=== PATIENT | male | born 2000 | race Two or more races ===

== ENCOUNTER 2025-05-12 06:56 | Emergency (ER) | payer MEDICAID, SELFPAY ==
--- NOTE | 2025-05-12 | XR_ITS ---
MRI abdomen, without contrast. MRCP Date and time of exam: May 12, 2025, 10 0 6:00 AM. Indications: Epigastric pain radiating to the right upper abdomen beginning 2 days ago, gallbladder sonogram May 12, 2025 enlarged common bile duct 0.6 cm distended gallbladder, gallstones Technique: Multiple axial and coronal images of the abdomen have been obtained with the Siemens 1.5T MRI scanner. Images obtained included T1 weighted transverse images, T2-weighted transverse images, T2-weighted transverse images fat-suppressed, T2 weighted haste fat suppressed transverse images, T1 weighted images, in and out of phase images, T2-weighted coronal images, breath hold, T2 weighted haze coronal images as well as T2 weighted coronal thick slab images, MRCP. Findings: Hepatomegaly 19 cm. Cholelithiasis. Gallbladder wall appears thickened and edematous. Common bile duct is not enlarged, 2 mm, no common hepatic or common bile duct stones No pancreatic mass. Spleen is not enlarged. No ascites. Aorta normal size. No hydronephrosis. Impression: Hepatomegaly. Acute calculus cholecystitis. No common hepatic or common bile duct stones
[2025-05-12 06:57] VITALS: BMI 32.8
[2025-05-12 07:16] VITALS: BP 141/78; PULSE 64; RESP 18; TEMP 37; O2SAT 99
--- NOTE | 2025-05-12 07:21 | XR_ITS ---
Examination: Abdomen sonogram, Limited Date and time of exam: May 12, 2025, 0810 hrs. Indications: Right upper abdominal pain beginning this morning Technique: Real-time white scale transabdominal sonographic images of the upper abdomen obtained. Findings: Multiple gallstones. Distended gallbladder. Normal gallbladder wall 0.2 cm. Abnormal enlargement common bile duct 0.6 cm. Pancreatic head 2.8 cm. Liver 16.8 cm fatty infiltration no focal liver lesions. Normal hepatopedal portal venous flow. Patent IVC Impression: Cholelithiasis, negative for cholecystitis Abnormal enlargement common bile duct 0.6 cm, consider MRCP follow-up to exclude common bile duct stones
--- NOTE | 2025-05-12 07:43 | PD.EDABDPN ---
ED Abdominal Pain RME/HPI General Chief Complaint: Abdominal Pain Stated complaint: UPPER ABDOMINAL PAIN Time seen by provider: 05/12/25 07:12 Arrival date/time: 05/12/25 06:56 24-year-old male with no known medical history presents to the emergency room with a chief complaint of epigastric pain that radiates to the right upper quadrant x 2 days Source: patient Mode of arrival: ambulatory Limitations: no limitations Related Data Home Medications ?Medication ?Instructions ?Recorded ?Confirmed No Known Home Medications 07/05/22 07/05/22 Allergies Allergy/AdvReac Type Severity Reaction Status Date / Time No Known Allergies AdvReac Unknown Uncoded 08/03/17 19:48 ED Exam General Limitations: Present no limitations Course Orders Category Date Time Status gall bladder Stat Exams 05/12/25 07:21 Ordered CBC Stat Lab 05/12/25 07:22 Ordered CMP [Comprehensive Metabolic Panel] Stat Lab 05/12/25 07:22 Ordered Lipase Stat Lab 05/12/25 07:22 Ordered UA [Urinalysis] Stat Lab 05/12/25 07:22 Ordered Urine Culture Stat Lab 05/12/25 07:22 Ordered HYDROcodone*/APAP 5/325 [[place] 5/325] Med 05/12/25 07:21 Discontinued 1 tab PO X1 ONE Ondansetron Odt [Zofran Odt] Med 05/12/25 07:21 Discontinued 4 mg PO X1 ONE Vital Signs Vital signs: Vital Signs Temperature 98.6 F 05/12/25 07:16 Pulse Rate 64 05/12/25 07:16 Respiratory Rate 18 05/12/25 07:16 Blood Pressure 141/78 H 05/12/25 07:16 Pulse Oximetry (%) 99 05/12/25 07:16 Oxygen Delivery Method Room Air 05/12/25 07:16 Abdominal Pain MDM Medications / Prescriptions Medication administrations:: Medication Administration History Discontinued Medications Hydrocodone Bitart/Acetaminophen (Hydrocodone/Apap 5/325 Tablet) 1 tab PO X1 ONE Stop: 05/12/25 07:22 Ondansetron HCl (Ondansetron Odt 4 Mg Tabrap) 4 mg PO X1 ONE; Protocol Stop: 05/12/25 07:22 Discharge Plan Prescriptions/Referrals Prescriptions/Med Rec: No Action No Known Home Medications Patient/Caregiver Discharge Instructions Print Language: Macedonian
[2025-05-12] MEDS: ONDANSETRON ODT 4 MG TABRAP PO (07:47)
[2025-05-12] MEDS: HYDROcodone/APAP 5/325 TABLET 1 TAB PO ×2 (07:47→12:16)
[2025-05-12 07:50] LABS: Collection Type, Urine Clean Catch
[2025-05-12 07:53] LABS: Basophils # (Auto) 0.0 Thou/mm3 (0.0-0.2); Basophils % (Auto) 0 % (0-2.5); Eosinophils # (Auto) 0.0 Thou/mm3 (0.0-0.5); Eosinophils % (Auto) 0 % (0-10); Hematocrit 47.0 % (41.0-53.0); Hemoglobin 15.4 g/dL (13.5-16.0); Immature Granulocytes Auto 0.05 Thou/mm3 (0.00-0.00); Lymphocytes # (Auto) 1.2 Thou/mm3 (1.0-4.8); Lymphocytes % (Auto) 9 % (10-50); Mean Corpuscular HGB Conc 32.8 g/dl (31.0-37.0); Mean Corpuscular Hemoglobin 27.4 pg (25.0-35.0); Mean Corpuscular Volume 84 fL (80-100); Monocytes # (Auto) 0.6 Thou/mm3 (0.0-0.8); Monocytes % (Auto) 5 % (0-12); Neutrophils # (Auto) 11.7 Thou/mm3 (1.8-7.7); Neutrophils % (Auto) 86 % (37-80); Nucleated Red Blood Cell # 0.00 Thou/mm3 (0.00-0.00); Nucleated Red Blood Cell % 0 /100 WBC (0); Platelet Count 376 Thou/mm3 (140-440); RDW Standard Deviation 40.4 fL (35.1-43.9); Red Blood Count 5.62 Miln/mm3 (4.50-5.90); White Blood Count 13.5 Thou/mm3 (3.8-10.6)
[2025-05-12 07:58] LABS: Bilirubin,Urine Negative (Negative); Blood,Urine Negative (Negative); Clarity,Urine Clear (Clear/Hazy); Color,Urine Lt-Yellow (Lt Yel-Yel); Glucose, Urine Negative (Negative); Ketones,Urine Negative (Negative); Leukocyte Esterase,Urine Negative (Negative); Nitrite,Urine Negative (Negative); PH,Urine 8.0 (5.0-7.0); Protein,Urine Trace (Neg - Trace); RBC,Urine 2 /hpf (0-3); Specific Gravity,Urine 1.020 (1.001-1.035); Squamous Epithelial Cell,Urine < 1 /hpf (0-5); Urobilinogen,Urine 2.0 mg/dL (0.0-1.0); WBC,Urine 1 /hpf (0-5)
[2025-05-12 08:28] LABS: Alanine Aminotransferase 8 U/L (10-49); Albumin, Serum 4.8 gm/dL (3.5-5.0); Albumin/Globulin Ratio 1.7 (1.2-2.2); Alkaline Phosphatase 94 U/L (46-116); Anion Gap 10 (7-16); Aspartate Amino Transferase 18 U/L (0-34); BUN/Creatinine Ratio 10 Ratio (12-20); Bilirubin,Total 0.4 mg/dL (0.3-1.2); Blood Urea Nitrogen 8 mg/dL (9-23); Calcium 10.0 mg/dL (8.3-10.6); Calcium (Corrected) 10.0 mg/dL (8.5-10.1); Carbon Dioxide 29.7 mMol/L (20.0-31.0); Chloride 104 mMol/L (98-107); Creatinine (Component) 0.8 mg/dL (0.6-1.3); Estimated Creatinine Clearance 158.0 mL/min (>60); Globulin 2.8 gm/dL (2.3-3.5); Glucose 127 mg/dL (74-106); Lipase 31 U/L (12-53); Osmolality,Calculated 287 (275-295); Potassium 4.0 mMol/L (3.4-5.1); Sodium 144 mMol/L (136-145); Total Protein 7.6 gm/dL (5.7-8.2); eGFR > 60 See Note
[2025-05-12 09:21] VITALS: BP 128/76; PULSE 82; RESP 18; TEMP 37.1; O2SAT 98
--- NOTE | 2025-05-12 09:22 | PD.EDRME ---
Rapid Medical Screening Exam RME Arrival date/time: 05/12/25 06:56 24-year-old male with no known medical history presents to the emergency room with a chief complaint of epigastric pain that radiates to the right upper quadrant x 2 days I have greeted and performed a focused initial assessment of this patient. A comprehensive ED assessment and evaluation of the patient, analysis of all test results, and completion of the medical decision making process will be conducted by additional ED providers. Chief Complaint: Abdominal Pain Time Seen by Provider: 05/12/25 07:12 Vital signs: Vital Signs Temperature 98.6 F 05/12/25 07:16 Pulse Rate 64 05/12/25 07:16 Respiratory Rate 18 05/12/25 07:16 Blood Pressure 141/78 H 05/12/25 07:16 Pulse Oximetry (%) 99 05/12/25 07:16 Oxygen Delivery Method Room Air 05/12/25 07:16 Vital signs reviewed by provider: Yes
[2025-05-12 11:12] VITALS: BP 139/83; PULSE 80; RESP 18; TEMP 37; O2SAT 92
--- NOTE | 2025-05-12 11:56 | EDNOTE_ITS ---
ED Abdominal Pain RME/HPI General Chief Complaint: Abdominal Pain Stated complaint: UPPER ABDOMINAL PAIN Time seen by provider: 05/12/25 07:12 Arrival date/time: 05/12/25 06:56 RME / HPI RME / HPI narrative: 05/12/25 06:56 24-year-old male with no known medical history presents to the emergency room with a chief complaint of epigastric pain that radiates to the right upper quadrant x 2 days I have greeted and performed a focused initial assessment of this patient. A comprehensive ED assessment and evaluation of the patient, analysis of all test results, and completion of the medical decision making process will be conducted by additional ED providers. DR. YOUSSEF MAIN ED EVALUATION 24 year old male with no stated medical history presents to the ED for evaluation of abdominal pain beginning 2 days ago and worsening at 04:00 AM today. Described as colicky in sensation that is located most to the epigastric and right upper quadrants with radiation around to his back. Initially rated as severe and in the ED rates as mild. Accompanied by nausea and vomiting. Patient reports history of similar pain years ago and diagnosed with small gallstones. No subsequent episodes of pain. Denies fevers, chills, sweats, chest pain, cough, shortness of breath, or urinary symptoms. Related Data Previous Rx's ?Medication ?Instructions ?Recorded ibuprofen 600 mg tablet 600 mg PO Q6H PRN pain #30 t abs 05/12/25 Allergies Allergy/AdvReac Type Severity Reaction Status Date / Time No Known Allergies AdvReac Unknown Uncoded 08/03/17 19:48 Review of Systems Review of Systems Systems Reviewed: All systems reviewed, normal except as documented Past Medical History Past Medical History CARDIAC: Negative Congestive Heart Failure RESPIRATORY: Negative Respiratory Disorders or Chronic Obstructive Pulmonary Disease (COPD) GENITOURINARY: Negative Renal Disease ENDOCRINE: Negative Diabetes Mellitus Type 1 or Diabetes Mellitus Type 2 Surgical History SURGICAL: Positive Ear Surgery and Eye Surgery Social History SMOKING STATUS: Never smoker ED Exam Narrative Physical exam: GENERAL APPEARANCE: alert and oriented x 4, well-developed, well-nourished, no acute distress HEENT: Normocephalic, atraumatic; pupils equal, round, reactive to light; EOMI; mucous membranes pink, moist; oropharynx clear NECK: Supple LUNGS: CTABL; no wheezes, no rales, no rhonchi HEART: Regular rate, regular rhythm; normal S1, S2; no murmurs ABDOMEN: non distended; normal BS; soft, no tenderness, no guarding, no rebound; no masses, no organomegaly, no hernia BACK: no CVA tenderness EXTREMITIES: atraumatic; no edema NEUROLOGIC: awake; alert and oriented x4; cranial nerves II-XII grossly intact; no focal sensory or motor deficits PSYCHIATRIC: appropriate mood and affect SKIN: warm, dry, normal color; no rashes Course Quality Measures none Orders Category Date Time Status MRI Screening NOW Care 05/12/25 09:22 Active Consult to General Surgery Stat Cons 05/12/25 12:05 Ordered MR MRCP Stat Exams 05/12/25 Completed US gall bladder Stat Exams 05/12/25 07:21 Completed CBC Stat Lab 05/12/25 07:26 Completed CMP [Comprehensive Metabolic Panel] Stat Lab 05/12/25 07:26 Completed Lipase Stat Lab 05/12/25 07:26 Completed UA [Urinalysis] Stat Lab 05/12/25 07:30 Completed Urine Culture Stat Lab 05/12/25 07:22 Received HYDROcodone*/APAP 5/325 [[place] 5/325] Med 05/12/25 07:21 Discontinued 1 tab PO X1 ONE HYDROcodone*/APAP 5/325 [[place] 5/325] Med 05/12/25 12:06 Discontinued 1 tab PO X1 ONE Ondansetron Odt [Zofran Odt] Med 05/12/25 07:21 Discontinued 4 mg PO X1 ONE Vital Signs Vital signs: Vital Signs Temperature 98.6 F 05/12/25 07:16 Pulse Rate 64 05/12/25 07:16 Respiratory Rate 18 05/12/25 07:16 Blood Pressure 141/78 H 05/12/25 07:16 Pulse Oximetry (%) 99 05/12/25 07:16 Oxygen Delivery Method Room Air 05/12/25 07:16 Pulse ox is 99% on room air which is adequate. Abdominal Pain MDM MDM Narrative MDM Narrative:: IVivian, am scribing for and in the presence of Dr. Youssef. 1200: I spoke with surgeon Dr. Anthony. Discussed patients PMHx, HPI, ED course, exam findings, labs, and radiology results. States given that the patients symptoms have improved, he can be discharged home and follow up with her on in her office. 1205: I reviewed todays results with patients and mother. They are in agreement with plan. Patient data External records reviewed:: [facility] previous records (I reviewed ED visit on 07/05/2022 ) Clinical information provided by:: patient Social determinants that could affect healthcare access:: none Patient has the following chronic illnesses:: None reported How is presenting disease/condition affected by chronic disease/condition?: no chronic disease Evaluation data The following diagnostics were reviewed and interpreted by me:: lab results and radiology exam(s) Lab and/or radiology exams considered but not ordered:: None Interpretation Summary: Ordering Physician: Pankaj Page Date of Service: 05/12/25 Procedure(s): MR MRCP Accession Number(s): [id number] cc: Pankaj Page; Fernando Ayala MD; Raleigh Erazo MD~ MRI abdomen, without contrast. MRCP Date and time of exam: May 12, 2025, 10 0 6:00 AM. Indications: Epigastric pain radiating to the right upper abdomen beginning 2 days ago, gallbladder sonogram May 12, 2025 enlarged common bile duct 0.6 cm distended gallbladder, gallstones Technique: Multiple axial and coronal images of the abdomen have been obtained with the Siemens 1.5T MRI scanner. Images obtained included T1 weighted transverse images, T2-weighted transverse images, T2-weighted transverse images fat-suppressed, T2 weighted haste fat suppressed transverse images, T1 weighted images, in and out of phase images, T2-weighted coronal images, breath hold, T2 weighted haze coronal images as well as T2 weighted coronal thick slab images, MRCP. Findings: Hepatomegaly 19 cm. Cholelithiasis. Gallbladder wall appears thickened and edematous. Common bile duct is not enlarged, 2 mm, no common hepatic or common bile duct stones No pancreatic mass. Spleen is not enlarged. No ascites. Aorta normal size. No hydronephrosis. Impression: Hepatomegaly. Acute calculus cholecystitis. No common hepatic or common bile duct stones Dictated By: Raleigh Erazo MD Signed By: <Electronically signed by Raleigh Erazo MD in [place]> 05/12/25 1115 Ordering Physician: Pankaj Page Date of Service: 05/12/25 Procedure(s): US gall bladder Accession Number(s): [id number] cc: Pankaj Page; Raleigh Erazo MD~ Examination: Abdomen sonogram, Limited Date and time of exam: May 12, 2025, 0810 hrs. Indications: Right upper abdominal pain beginning this morning Technique: Real-time white scale transabdominal sonographic images of the upper abdomen obtained. Findings: Multiple gallstones. Distended gallbladder. Normal gallbladder wall 0.2 cm. Abnormal enlargement common bile duct 0.6 cm. Pancreatic head 2.8 cm. Liver 16.8 cm fatty infiltration no focal liver lesions. Normal hepatopedal portal venous flow. Patent IVC Impression: Cholelithiasis, negative for cholecystitis Abnormal enlargement common bile duct 0.6 cm, consider MRCP follow-up to exclude common bile duct stones Dictated By: Raleigh Erazo MD Signed By: <Electronically signed by Raleigh Erazo MD in [place]> 05/12/25 0832 Medications / Prescriptions Medications or Prescriptions considered but not ordered:: None Medication administrations:: Medication Administration History Discontinued Medications Hydrocodone Bitart/Acetaminophen (Hydrocodone/Apap 5/325 Tablet) 1 tab PO X1 ONE Stop: 05/12/25 07:22 Last Admin: 05/12/25 07:47 Dose: 1 tab Documented By: [facility] Hydrocodone Bitart/Acetaminophen (Hydrocodone/Apap 5/325 Tablet) 1 tab PO X1 ONE Stop: 05/12/25 12:07 Ondansetron HCl (Ondansetron Odt 4 Mg Tabrap) 4 mg PO X1 ONE; Protocol Stop: 05/12/25 07:22 Last Admin: 05/12/25 07:47 Dose: 4 mg Documented By: [facility] See above Consultations Consultation(s) initiated? (list below): Yes Consultation #1 (Physician, Specialty, Details): See MDM Diagnosis Differential diagnosis abdominal pain: abdominal pain and other (cholelithiasis, kidney stone) Most likely diagnosis given after review of the tests above:: Abdominal pain Biliary colic Admission Indicated Admission indicated?: not indicated Admission Request Was there a request for admission?: No Disposition Plan Disposition Plan: Discharge Discharge Attestation Discharge Attestation: The patient and all family members were given an opportunity to ask questions and understood the discharge instructions. Discharge instructions specifically effects, indications for sooner follow up or return to the emergency department, and the expected course of current diagnosis. Patient condition: Stable Discharge Plan Plan Patient Disposition: HOME (Self Care) Prescriptions/Referrals Prescriptions/Med Rec: New ibuprofen 600 mg tablet 600 mg PO Q6H PRN (Reason: pain) Qty: 30 0RF Referrals: Fernando Ayala MD [Primary Care Provider] - In 1 week Annalee Anthony MD [Physician] - 05/29/25 Problem List Clinical Impression: Abdominal pain, Biliary colic Patient/Caregiver Discharge Instructions Education Materials: ED Gallstones with Biliary Colic Additional Instructions: Follow up with Dr. Anthony on 05/12/25. The office staff will call you with an appointment time. Print Language: Luxembour[place] Stand Alone Forms: Joanie Award Info., Patient Portal Info Letter
== END 2025-05-12 12:19 | disposition home or self-care (01) ==
PROVIDERS: Nurse Practitioner Family; Emergency Provider Emergency Medicine; PCP Family Medicine
DX: K80.62 Calculus of gallbladder and bile duct with acute cholecystitis without obstruction (principal); R16.0 Hepatomegaly, not elsewhere classified
CPT/HCPCS: 36415; 74181; 76705; 80053; 81001; 83690; 85025; 87086; 99284; Q0162; A9270

== ENCOUNTER 2025-05-17 19:40 | Observation (INO) | payer MEDICAID, SELFPAY ==
[2025-05-17 19:41] VITALS: BMI 32.8
[2025-05-17 20:05] VITALS: BP 159/77; PULSE 64; RESP 18; TEMP 37.2; O2SAT 97
--- NOTE | 2025-05-17 20:25 | XR_ITS ---
Examination: Abdomen sonogram, Limited Date and time of exam: May 17, 2025, 2114 hrs. Indications: Epigastric pain, today, history gallstones Technique: Real-time white scale transabdominal sonographic images of the upper abdomen obtained. Findings: Multiple gallstones Gallbladder wall 0.5 cm with edema Common bile duct 0.6 cm Pancreatic head 2.8 cm. Liver 17.6 cm lobular contour fatty infiltration Normal hepatopedal portal venous oh Patent IVC Impression: Acute calculus cholecystitis Common bile duct enlarged for patient of this age, however, please see the MRCP report May 12, 2025, given the current common bile duct measurement, consider repeat MRCP follow-up
[2025-05-17 20:47] LABS: Basophils # (Auto) 0.0 Thou/mm3 (0.0-0.2); Basophils % (Auto) 0 % (0-2.5); Eosinophils # (Auto) 0.0 Thou/mm3 (0.0-0.5); Eosinophils % (Auto) 0 % (0-10); Hematocrit 43.7 % (41.0-53.0); Hemoglobin 14.3 g/dL (13.5-16.0); Immature Granulocytes Auto 0.08 Thou/mm3 (0.00-0.00); Lymphocytes # (Auto) 1.0 Thou/mm3 (1.0-4.8); Lymphocytes % (Auto) 6 % (10-50); Mean Corpuscular HGB Conc 32.7 g/dl (31.0-37.0); Mean Corpuscular Hemoglobin 27.4 pg (25.0-35.0); Mean Corpuscular Volume 84 fL (80-100); Monocytes # (Auto) 0.8 Thou/mm3 (0.0-0.8); Monocytes % (Auto) 5 % (0-12); Neutrophils # (Auto) 15.3 Thou/mm3 (1.8-7.7); Neutrophils % (Auto) 89 % (37-80); Nucleated Red Blood Cell # 0.00 Thou/mm3 (0.00-0.00); Nucleated Red Blood Cell % 0 /100 WBC (0); Platelet Count 395 Thou/mm3 (140-440); RDW Standard Deviation 38.3 fL (35.1-43.9); Red Blood Count 5.22 Miln/mm3 (4.50-5.90); White Blood Count 17.3 Thou/mm3 (3.8-10.6)
[2025-05-17] MEDS: ONDANSETRON ODT 4 MG TABRAP PO (20:47)
[2025-05-17] MEDS: MORPHINE SULF INJ 4 MG/ML VIAL IM ×2 (20:48→22:43)
[2025-05-17 21:25] LABS: Alanine Aminotransferase 8 U/L (10-49); Albumin, Serum 4.6 gm/dL (3.5-5.0); Albumin/Globulin Ratio 1.5 (1.2-2.2); Alkaline Phosphatase 92 U/L (46-116); Anion Gap 11 (7-16); Aspartate Amino Transferase 15 U/L (0-34); BUN/Creatinine Ratio 11 Ratio (12-20); Bilirubin,Total 0.6 mg/dL (0.3-1.2); Blood Urea Nitrogen 9 mg/dL (9-23); Calcium 9.5 mg/dL (8.3-10.6); Calcium (Corrected) 9.5 mg/dL (8.5-10.1); Carbon Dioxide 26.9 mMol/L (20.0-31.0); Chloride 102 mMol/L (98-107); Creatinine (Component) 0.8 mg/dL (0.6-1.3); Estimated Creatinine Clearance 158.0 mL/min (>60); Globulin 3.1 gm/dL (2.3-3.5); Glucose 121 mg/dL (74-106); Osmolality,Calculated 279 (275-295); Potassium 3.6 mMol/L (3.4-5.1); Sodium 140 mMol/L (136-145); Total Protein 7.7 gm/dL (5.7-8.2); eGFR > 60 See Note
[2025-05-17 22:03] LABS: Collection Type, Urine Clean Catch
[2025-05-17 22:17] LABS: Amorphous Crystals,Urine Present (Absent); Bacteria,Urine Rare; Bilirubin,Urine Negative (Negative); Blood,Urine 1+ (Negative); Clarity,Urine Clear (Clear/Hazy); Color,Urine Yellow (Lt Yel-Yel); Glucose, Urine Negative (Negative); Ketones,Urine Trace (Negative); Leukocyte Esterase,Urine Negative (Negative); Nitrite,Urine Negative (Negative); PH,Urine 5.5 (5.0-7.0); Protein,Urine Trace (Neg - Trace); RBC,Urine 2 /hpf (0-3); Specific Gravity,Urine 1.031 (1.001-1.035); Squamous Epithelial Cell,Urine 1 /hpf (0-5); Urobilinogen,Urine 3.0 mg/dL (0.0-1.0); WBC,Urine < 1 /hpf (0-5)
--- NOTE | 2025-05-17 22:34 | PD.EDABDPN ---
ED Abdominal Pain RME/HPI General Chief Complaint: Abdominal Pain Stated complaint: EPIGASTRIC PAIN Time seen by provider: 05/17/25 19:59 Arrival date/time: 05/17/25 19:40 This is a case of 24-year-old male with history of gallstone came in in the emergency room due to bilateral upper abdominal pain history of present illness started 2 weeks prior to arrival in the emergency room when patient started to have abdominal pain associated with nausea vomiting patient was seen here May 12, 2025 for he was diagnosed to have cholelithiasis MR SP was also done at that time patient condition improved until today when the recurrence of abdominal pain started with nausea vomiting no diarrhea no constipation no blood in stool thus patient decided to sought consult here in the emergency ROOM Limitations: no limitations Related Data Previous Rx's ?Medication ?Instructions ?Recorded ibuprofen 600 mg tablet 600 mg PO Q6H PRN pain #30 tabs 05/12/25 Allergies Allergy/AdvReac Type Severity Reaction Status Date / Time No Known Allergies Allergy Verified 05/17/25 19:43 Review of Systems Review of Systems Systems Reviewed: All systems reviewed, normal except as documented Constitutional Constitutional: Reports system reviewed and no additional complaints, except as documented, Reports as per HPI, Denies anorexia, Denies chills and Denies fever(s) ENT Ears, Nose, Mouth, and Throat: Denies dysphagia and Denies odynophagia Cardiovascular Cardiovascular: Reports system reviewed and no additional complaints, except as documented and Reports as per HPI Respiratory Respiratory: Reports system reviewed and no additional complaints, except as documented and Reports as per HPI Gastrointestinal Gastrointestinal: Reports system reviewed and no additional complaints, except as documented, Reports as per HPI, Reports abdominal pain, Denies belching, Denies bloating, Denies change in bowel habits, Denies change in stool character, Denies coffee ground emesis, Denies constipation, Denies cramping, Denies diarrhea, Denies dyspepsia, Denies dysphagia, Denies early satiety, Denies excessive flatus, Denies fecal incontinence, Denies heartburn, Denies hematemesis, Denies hematochezia, Denies loose stools, Denies melena, Reports nausea, Denies odynophagia, Denies tenesmus and Reports vomiting Musculoskeletal Musculoskeletal: Reports system reviewed and no additional complaints, except as documented and Reports as per HPI Neurologic Neurologic: Reports system reviewed and no additional complaints, except as documented and Reports as per HPI Past Medical History Past Medical History CARDIAC: Negative Congestive Heart Failure RESPIRATORY: Negative Chronic Obstructive Pulmonary Disease (COPD) GENITOURINARY: Negative Renal Disease ENDOCRINE: Negative Diabetes Mellitus Type 1 or Diabetes Mellitus Type 2 Surgical History SURGICAL: Positive Ear Surgery and Eye Surgery Social History SMOKING STATUS: Never smoker ED Exam General Limitations: Present no limitations General appearance: Present alert, in no apparent distress and other (Patient is awake alert oriented not in distress nontoxic looking well-hydrated well-nourished) Head Head exam: Present atraumatic, normocephalic and normal inspection Eye Eye exam: Present normal appearance, PERRL and EOMI ENT ENT exam: Present normal exam, normal oropharynx and mucous membranes moist Neck Neck exam: Present normal inspection, full ROM and trachea midline; Absent tenderness Chest Chest inspection: Present normal inspection and symmetric chest wall rise; Absent tenderness Respiratory Respiratory exam: Present normal lung sounds bilaterally; Absent respiratory distress, wheezes, stridor, accessory muscle use or prolonged expiratory phase Cardiovascular Cardiovascular exam: Present regular rate, normal rhythm and normal heart sounds; Absent bradycardia, tachycardia, irregular rhythm, systolic murmur or diastolic murmur Abdominal Exam Abdominal exam: Present soft, tenderness (Bilateral upper abdominal tenderness epigastric tenderness with positive Sapp no CVA tenderness), normal bowel sounds and Sapp's sign; Absent distention, guarding, rebound, rigidity, diminished bowel sounds, hyperactive bowel sounds, hypoactive bowel sounds, organomegaly, psoas sign, heel tap sign, Rovsing's sign, tenderness at McBurney's Point, mass or hernia Extremities Exam Extremities exam: Present normal inspection and full ROM Back Exam Back exam: Present normal inspection and full ROM Neurological Exam Neurological exam: Present alert, oriented X3, CN II-XII intact, normal gait and reflexes normal; Absent motor sensory deficit Psychiatric Psychiatric exam: Present normal affect and normal mood Skin Skin exam: Present warm, dry, intact and normal color Course Quality Measures none Orders Category Date Time Status COVID-19 Screening Questionnaire NOW Care 05/17/25 22:33 Active Decision to Admit X1 Care 05/17/25 22:33 Completed US gall bladder Stat Exams 05/17/25 20:25 Completed CBC Stat Lab 05/17/25 20:27 Completed Comprehensive Metabolic Panel Stat Lab 05/17/25 20:27 Results Lipase Stat Lab 05/17/25 20:27 Results Urinalysis Stat Lab 05/17/25 21:30 Completed Morphine* Inj Med 05/17/25 20:25 Discontinued 4 mg IM X1 ONE Morphine* Inj Med 05/17/25 22:33 Once 4 mg IM X1 ONE Ondansetron Inj [Zofran Inj] Med 05/17/25 22:33 Once 4 mg IM X1 ONE Ondansetron Odt [Zofran Odt] Med 05/17/25 20:25 Discontinued 4 mg PO X1 ONE Vital Signs Vital signs: Vital Signs Temperature 98.9 F 05/17/25 20:05 Pulse Rate 64 05/17/25 20:05 Respiratory Rate 18 05/17/25 20:05 Blood Pressure 159/77 H 05/17/25 20:05 Pulse Oximetry (%) 97 05/17/25 20:05 Oxygen Delivery Method Room Air 05/17/25 20:05 Oxygen saturation is 97% in the room air Abdominal Pain MDM MDM Narrative MDM Narrative:: This is a case of 24-year-old male with history of gallstone came in in the emergency room due to bilateral upper abdominal pain history of present illness started 2 weeks prior to arrival in the emergency room when patient started to have abdominal pain associated with nausea vomiting patient was seen here May 12, 2025 for he was diagnosed to have cholelithiasis MR SP was also done at that time patient condition improved until today when the recurrence of abdominal pain started with nausea vomiting no diarrhea no constipation no blood in stool thus patient decided to sought consult here in the emergency ROOM physical examination patient is awake alert oriented not in distress nontoxic looking well-hydrated well-nourished no signs and symptoms of sepsis or dehydration abdominal exam noted to have tenderness on both upper and epigastric area no guarding no rigidity no rebound but positive Sapp negative psoas negative straight or negative Rovsing's neck McBurney's negative CVA tenderness blood test showed leukocytosis WBC was 17,000 patient kidney and liver function is normal no electrolyte imbalance patient lipase and urinalysis was pending patient ultrasound showed acute calculous cholecystitis I spoke to the surgeon on-call Dr. Padron discussed patient condition history and physical examination I was told that the patient need to be admitted by hospitalist and he will do the surgery tomorrow I spoke to Dr. Dejesus discussed patient condition history and physical examination relayed results of MRCP ultrasound and blood test and the order of Dr. Macario agreed that the patient need to be admitted and accept patient care as discussed with the patient the treatment plan and admission and agreed Patient data External records reviewed:: [facility] previous records Clinical information provided by:: patient Social determinants that could affect healthcare access:: none Patient has the following chronic illnesses:: None How is presenting disease/condition affected by chronic disease/condition?: no chronic disease Evaluation data The following diagnostics were reviewed and interpreted by me:: lab results and radiology exam(s) Lab and/or radiology exams considered but not ordered:: Reviewed Interpretation Summary: Reviewed Medications / Prescriptions Medications or Prescriptions considered but not ordered:: Given Medication administrations:: Medication Administration History Morphine Sulfate (Morphine Sulf Inj 4 Mg/Ml Vial) 4 mg IM X1 ONE Stop: 05/17/25 22:34 Ondansetron HCl (Ondansetron Inj 2 Mg/Ml Inj 2 Ml) 4 mg IM X1 ONE; Protocol Stop: 05/17/25 22:34 Discontinued Medications Morphine Sulfate (Morphine Sulf Inj 4 Mg/Ml Vial) 4 mg IM X1 ONE Stop: 05/17/25 20:26 Last Admin: 05/17/25 20:48 Dose: 4 mg Documented By: Ondansetron HCl (Ondansetron Odt 4 Mg Tabrap) 4 mg PO X1 ONE; Protocol Stop: 05/17/25 20:26 Last Admin: 05/17/25 20:47 Dose: 4 mg Documented By: Given Consultations Consultation(s) initiated? (list below): Yes Consultation #1 (Physician, Specialty, Details): Dr. PADRON discussed patient condition history and physical examination relayed the results of the imaging and blood tests ordered to admit the patient by hospitalist and she will do the surgery TOMORROW Consultation #2 (Physician, Specialty, Details): DR DEJESUS discussed patient condition history and physical examination relayed order of Dr. Macario accept patient care and accept admission Diagnosis Differential diagnosis abdominal pain: abdominal pain, acute appendicitis, calculus of kidney, constipation, diverticulitis, gastroenteritis, pancreatitis and small bowel obstruction Most likely diagnosis given after review of the tests above:: Cholecystitis Admission Indicated Admission indicated?: indicated Explain why admission is indicated or not indicated:: Cholecystitis Admission Request Was there a request for admission?: Yes Admission Attestation Admission request attestation: Discussed case with [] from Hospitalist service regarding admission. Discussed patients ED course, exam findings, labs, and radiology results. The Hospitalist [agrees,declines] to accept the patient for admission. Disposition Plan Disposition Plan: Admit Discharge Plan Plan Patient Disposition: HOME (Self Care) Patient condition on transfer: Stable Prescriptions/Referrals Prescriptions/Med Rec: No Action ibuprofen 600 mg tablet 600 mg PO Q6H PRN (Reason: pain) Qty: 30 0RF Referrals: No Primary/Family,Physician [Primary Care Provider] - In 1 week Problem List Clinical Impression: Abdominal pain, Acute calculous cholecystitis Patient/Caregiver Discharge Instructions Education Materials: Abdominal Pain, ED Cholecystitis, Confirmed Print Language: Spanish Stand Alone Forms: Joanie Award Info., Patient Portal Info Letter PA/CAPTAIN ROOM SERVICE Supervising Physician PA/CAPTAIN ROOM SERVICE Supervising Physician: Dr. Almodovar
[2025-05-17] MEDS: ONDANSETRON INJ 2 MG/ML INJ 2 ML 4 MG IM (22:43)
[2025-05-17 23:20] VITALS: BP 159/90; PULSE 67; RESP 18; TEMP 37.4; O2SAT 97
[2025-05-17 23:25] VITALS: O2SAT 95
[2025-05-18] VITALS (12 sets, daily range): BP systolic 122–152; BP diastolic 69–92; PULSE 72–115; RESP 15–96; TEMP 36.2–37.7; O2SAT 93–98; BMI 49.2
--- NOTE | 2025-05-18 00:14 | ESHP_ITS ---
Documentation for date of: 05/18/25 [facility] History of Present Illness Chief complaint: Abdominal pain History of present illness: 24-year-old male with no significant past medical history presenting with acute onset sharp RUQ and epigastric abdominal pain beginning around 1 PM today, associated with multiple episodes of non-bloody vomiting; last oral intake was this morning which he vomited shortly after. Pain is localized to the RUQ/epigastrium, mildly radiated to the back earlier, currently non-radiating. He denies fever, chills, dysuria, hematuria, chest pain (except mild tightness on deep inspiration), headache, or dizziness. Patient was evaluated in the ED on 05/12/25 with MRCP showing cholelithiasis and gallbladder wall thickening, without choledocholithiasis, and was discharged on pain medication. Since then, he has had intermittent discomfort, but pain acutely worsened today prompting ED return. ED course: Vitals notable for persistent elevated BP 161/88, otherwise stable. Labs significant for leukocytosis (WBC 17K) with normal LFTs and chemistries. RUQ ultrasound showed multiple gallstones with gallbladder wall thickening/edema, consistent with acute calculous cholecystitis. ED consulted Dr. Anthony (surgery) who recommended admission for cholecystectomy tomorrow. ROS * Constitutional: No fevers, chills, sweats. * GI: RUQ and epigastric pain, nausea, vomiting; denies diarrhea, constipation, hematemesis, melena, hematochezia. * : No dysuria, hematuria, frequency, urgency. * CV/Resp: No chest pain, SOB, palpitations. * Neuro: No dizziness, headache, syncope. PMH * None. PSH * Eye surgery in childhood. Medications * None at home. Allergies * NKDA. FH * Non-contributory. SH * Occasional alcohol (last drink Monday night). * Denies tobacco or illicit drugs. Exam Vital Signs Temp Pulse Resp BP Pulse Ox O2 Del Method 99.3 F 67 18 159/90 H 95 Room Air 05/17/25 23:20 05/17/25 23:20 05/17/25 23:20 05/17/25 23:20 05/17/25 23:25 05/17/25 23:20 Narrative Exam General: Young male, appears uncomfortable HEENT: No scleral icterus. CV: RRR, no murmurs. Lungs: CTAB, no distress. Abdomen: Soft, RUQ and epigastric tenderness, no guarding or rebound. No palpable masses. Extremities: No edema. Neuro: AOx3, no deficits. Skin: No jaundice. Results: Labs 05/17/25 20:27 05/17/25 20:27 Labs: Short CBC 05/17/25 Range/Units 20:27 WBC 17.3 H (3.8-10.6) Thou/mm3 Hgb 14.3 (13.5-16.0) g/dL Hct 43.7 (41.0-53.0) % Plt Count 395 (140-440) Thou/mm3 BMP 05/17/25 20:27 Sodium 140 Potassium 3.6 Chloride 102 Carbon Dioxide 26.9 BUN 9 Creatinine 0.8 Glucose 121 H Calcium 9.5 Liver Function 05/17/25 Range/Units 20:27 Total Bilirubin 0.6 (0.3-1.2) mg/dL AST 15 (0-34) U/L ALT 8 L (10-49) U/L Alkaline Phosphatase 92 (46-116) U/L Albumin 4.6 (3.5-5.0) gm/dL Urine 05/17/25 Range/Units 21:30 Urine Color Yellow (Lt Yel-Yel) Urine Clarity Clear (Clear/Hazy) Urine pH 5.5 (5.0-7.0) Ur Specific [place] 1.031 (1.001-1.035) Urine Protein Trace (Neg - Trace) Urine Glucose (UA) Negative (Negative) Quality Measures Quality Measures VTE prophylaxis Medications Home Medications and Allergies Allergies Allergy/AdvReac Type Severity Reaction Status Date / Time No Known Allergies Allergy Verified 05/17/25 19:43 Visit Medications Acetaminophen (Acetaminophen 325 Mg Tablet) 650 mg PO Q6H PRN PRN Reason: Fever >100.4 Stop: 06/16/25 23:11 Acetaminophen (Acetaminophen Supp 650 Mg Supp) 650 mg UT Q6H PRN PRN Reason: PAIN SCALE 1-3 (mild Stop: 06/16/25 23:11 Hydrocodone Bitart/Acetaminophen (Hydrocodone/Apap 5/325 Tablet) 1 tab PO Q4HR PRN PRN Reason: PAIN SCALE 4-6 (Moderate Stop: 05/22/25 23:11 Lactated Ringer's (Lactated Ringers) 1,000 mls @ 75 mls/hr IV .[id number] [facility] Stop: 06/16/25 23:14 Piperacillin/Tazobactam/Dextrose (Zosyn) 3.375 g in 50 mls @ 100 mls/hr IV Q6HR [facility] Stop: 05/24/25 23:24 Morphine Sulfate (Morphine Sulf Inj 4 Mg/Ml Vial) 2 mg IVP Q2H PRN PRN Reason: PAIN SCALE 7-10 (Severe Stop: 05/22/25 23:11 Ondansetron HCl (Ondansetron Inj 2 Mg/Ml Inj 2 Ml) 4 mg IVP Q6H PRN; Protocol PRN Reason: NAUSEA OR VOMITING Stop: 06/16/25 23:11 Discontinued Medications Enoxaparin Sodium (Enoxaparin Sod Inj 40 Mg/0.4 Ml Syringe) 40 mg SC QDAY [facility] Stop: 06/01/25 08:59 Morphine Sulfate (Morphine Sulf Inj 4 Mg/Ml Vial) 4 mg IM X1 ONE Stop: 05/17/25 20:26 Last Admin: 05/17/25 20:48 Dose: 4 mg Morphine Sulfate (Morphine Sulf Inj 4 Mg/Ml Vial) 4 mg IM X1 ONE Stop: 05/17/25 22:34 Last Admin: 05/17/25 22:43 Dose: 4 mg Ondansetron HCl (Ondansetron Odt 4 Mg Tabrap) 4 mg PO X1 ONE; Protocol Stop: 05/17/25 20:26 Last Admin: 05/17/25 20:47 Dose: 4 mg Ondansetron HCl (Ondansetron Inj 2 Mg/Ml Inj 2 Ml) 4 mg IM X1 ONE; Protocol Stop: 05/17/25 22:34 Last Admin: 05/17/25 22:43 Dose: 4 mg Assessment & Plan Plan 24-year-old male with no significant past medical history presenting with RUQ/epigastric pain, leukocytosis (17K), and imaging findings consistent with acute calculous cholecystitis, currently stable, admitted for IV antibiotics, fluids, and planned cholecystectomy tomorrow. # Acute calculous cholecystitis # Intractable nausea and vomiting Young male with RUQ/epigastric pain, leukocytosis, and US confirming acute calculous cholecystitis without CBD obstruction. Plan: * Admit for surgical management. * Started Zosyn 3.375 g IV q6h. * LR 75 mL/hr maintenance fluids. * NPO after midnight. * Pain control with IV opioids PRN. * Monitor vitals, abdominal exam, CBC, CMP. * Surgery consulted (Dr. Anthony) --> plan for cholecystectomy tomorrow. * Radiology recommended repeat MRCP for follow-up; however, given recent MRCP on 05/12 showing no choledocholithiasis, today?s US confirming acute cholecystitis without obstruction, normal LFTs, and scheduled cholecystectomy tomorrow, repeat MRCP was deferred. Will reconsider if jaundice, LFT abnormalities, or biliary obstruction develop. # Leukocytosis WBC 17K, likely reactive to acute infection/inflammation. Plan: * Trend CBC. * Monitor for systemic signs of infection. # Hepatomegaly with fatty infiltration Noted on MRCP and US, incidental, no acute LFT abnormalities. Plan: * No acute intervention. * Recommend outpatient follow-up for lifestyle modification and monitoring. # Elevated blood pressure BP 161/88 persistently elevated during ED stay Patient with no known HTN history, young age raises concern for possible secondary cause such as renal artery stenosis. Plan: * Monitor inpatient vitals. * No acute intervention tonight. * Recommend outpatient follow-up with PCP for work-up of hypertension (consider renal artery Doppler if persistent). Health Maintenance: Disposition: Admit to med surg, surgery following. Feeding: NPO after midnight; IV fluids until then. Thromboprophylaxis: SCD GI prophylaxis: Not indicated. Code Status: Full code. ----- Plan discussed with attending physician Dr. Meghann Oh MD PGY-1 Internal Medicine Attending Provider Attestation/Addendum After examination of the patient and review of the clinical data I feel that this patient needs admission to the hospital for further treatment/evaluation. Plan of care discussed with patient and is in agreement. I Shaq Zavaleta MD, attest that I was physically present for willson portions of evaluation, and examined patient, labs and imagings and plan of care were discussed with IM residents team, and I agree with the findings and plans documented above.
[2025-05-18] MEDS: PIPER/TAZO 3.375 GM PREMIX 3.375 G/50 ML BAG IV ×3 (00:20→11:50)
[2025-05-18] MEDS: RINGERS LACTATED 1000 ML 1,000 ML 75 ML IV ×2 (00:20→13:51)
[2025-05-18] MEDS: MORPHINE SULF INJ 4 MG/ML VIAL 2 MG IVP ×4 (01:18→13:59)
[2025-05-18 06:08] LABS: Basophils # (Auto) 0.0 Thou/mm3 (0.0-0.2); Basophils % (Auto) 0 % (0-2.5); Eosinophils # (Auto) 0.0 Thou/mm3 (0.0-0.5); Eosinophils % (Auto) 0 % (0-10); Hematocrit 43.7 % (41.0-53.0); Hemoglobin 14.5 g/dL (13.5-16.0); Immature Granulocytes Auto 0.09 Thou/mm3 (0.00-0.00); Lymphocytes # (Auto) 1.1 Thou/mm3 (1.0-4.8); Lymphocytes % (Auto) 6 % (10-50); Mean Corpuscular HGB Conc 33.2 g/dl (31.0-37.0); Mean Corpuscular Hemoglobin 27.8 pg (25.0-35.0); Mean Corpuscular Volume 84 fL (80-100); Monocytes # (Auto) 1.3 Thou/mm3 (0.0-0.8); Monocytes % (Auto) 7 % (0-12); Neutrophils # (Auto) 17.2 Thou/mm3 (1.8-7.7); Neutrophils % (Auto) 87 % (37-80); Nucleated Red Blood Cell # 0.00 Thou/mm3 (0.00-0.00); Nucleated Red Blood Cell % 0 /100 WBC (0); Platelet Count 357 Thou/mm3 (140-440); RDW Standard Deviation 37.9 fL (35.1-43.9); Red Blood Count 5.22 Miln/mm3 (4.50-5.90); White Blood Count 19.7 Thou/mm3 (3.8-10.6)
[2025-05-18 06:24] LABS: INR 1.1 (0.9-1.3); Partial Thromboplastin Time 28.2 Seconds (22.0-36.0); Prothrombin Time 11.6 Seconds (9.0-12.2)
[2025-05-18 07:13] LABS: Alanine Aminotransferase 8 U/L (10-49); Albumin, Serum 4.5 gm/dL (3.5-5.0); Albumin/Globulin Ratio 1.6 (1.2-2.2); Alkaline Phosphatase 92 U/L (46-116); Anion Gap 12 (7-16); Aspartate Amino Transferase 15 U/L (0-34); BUN/Creatinine Ratio 7 Ratio (12-20); Bilirubin,Total 1.2 mg/dL (0.3-1.2); Blood Urea Nitrogen 5 mg/dL (9-23); Calcium 9.3 mg/dL (8.3-10.6); Calcium (Corrected) 9.3 mg/dL (8.5-10.1); Carbon Dioxide 26.2 mMol/L (20.0-31.0); Chloride 100 mMol/L (98-107); Creatinine (Component) 0.7 mg/dL (0.6-1.3); Estimated Creatinine Clearance 224.5 mL/min (>60); Globulin 2.9 gm/dL (2.3-3.5); Glucose 110 mg/dL (74-106); Magnesium 1.9 mg/dL (1.6-2.6); Osmolality,Calculated 273 (275-295); Phosphorous 3.2 mg/dL (2.4-5.1); Potassium 3.8 mMol/L (3.4-5.1); Sodium 138 mMol/L (136-145); Total Protein 7.4 gm/dL (5.7-8.2); eGFR > 60 See Note
--- NOTE | 2025-05-18 09:50 | ESPR_ITS ---
Documentation for date of: 05/18/25 Subjective Subjective Interval history: No acute overnight events reported. Pt seen and examined at bedside. Patient continues to have right upper quadrant sharp pain that is constant in nature. Patient states that the pain this time is not as pulsating and intermittent as 3 days ago. Patient has been requiring IV morphine 2 mg every 4 hours [id number] due to severe pain at 9 out of 10. Patient denies having any nausea/vomiting since this morning patient is scheduled for cholecystectomy later this afternoon. Patient is currently on IV fluids and IV Zosyn. Pending further surgery recommendations at this time. Labs significant for leukocytosis of 19.7. 17:00 - UDPATE- Spoke with Dr. Anthony, General surgery, and felt patient can be discharged home today from surgery standpoint, however, d/t patient requiring IV pain medications early this morning, will discharge ealry tomorrow morning with Percocet as needed. Patient can f/u with general surgery on 05/26/25. Exam Vital Signs Temp Pulse Resp BP Pulse Ox O2 Del Method 97.4 F 87 16 139/86 H 98 Room Air 05/18/25 08:02 05/18/25 08:02 05/18/25 08:02 05/18/25 08:02 05/18/25 08:02 05/18/25 08:02 Narrative Exam General Appearance: Pt in NAD laying on his right side in bed. Conversational, able to answer all questions. HEENT: NC/AT, no scleral icterus, no conjunctival pallor, MMM Lungs: CTAB, no wheezes or crackles appreciated CVS: RRR, S1/S2 heard, no murmurs or rubs appreciated ABD: Soft, right upper quadrant tenderness to light touch, non-tender, non- distended, BS + in all 4 quadrants EXT: no deformity/edema/lesions/cyanosis/clubbing, radial pulses 2+ BL, DP pulses 2 + BL SKIN: Skin exam normal without any rashes. No jaundice. Neuro: A&O x 3. No gross neurological deficits. Motor and sensory grossly intact in B/L UL and LL. Psych: Appropriate mood and affect Objective Labs 05/18/25 04:39 05/18/25 04:39 Labs: Laboratory Results - last 24 hr 09/06/25 09/06/25 09/07/25 20:27 21:30 04:39 WBC 17.3 H 19.7 H RBC 5.22 5.22 Hgb 14.3 14.5 Hct 43.7 43.7 MCV 84 84 MCH 27.4 27.8 MCHC 32.7 33.2 RDW Std Deviation 38.3 37.9 Plt Count 395 357 D Neut % (Auto) 89 H 87 H Lymph % (Auto) 6 L 6 L [place] % (Auto) 5 7 Eos % (Auto) 0 0 Baso % (Auto) 0 0 Neut # (Auto) 15.3 H 17.2 H Lymph # (Auto) 1.0 1.1 [place] # (Auto) 0.8 1.3 H Eos # (Auto) 0.0 0.0 Baso # (Auto) 0.0 0.0 Immature Gran # (Auto) 0.08 H 0.09 H Absolute Nucleated RBC 0.00 0.00 Immature Gran % 1 H 1 H Nucleated RBC % 0 0 PT 11.6 INR 1.1 APTT 28.2 Sodium 140 138 Potassium 3.6 3.8 Chloride 102 100 Carbon Dioxide 26.9 26.2 Anion Gap 11 12 BUN 9 5 L Creatinine 0.8 0.7 Estim Creat Clear Calc 158.0 224.5 eGFR > 60 > 60 BUN/Creatinine Ratio 11 L 7 L Glucose 121 H 110 H Calculated Osmolality 279 273 L Calcium 9.5 9.3 Corrected Calcium 9.5 9.3 Phosphorus 3.2 Magnesium 1.9 Total Bilirubin 0.6 1.2 D AST 15 15 ALT 8 L 8 L Alkaline Phosphatase 92 92 Total Protein 7.7 7.4 Albumin 4.6 4.5 Globulin 3.1 2.9 Albumin/Globulin Ratio 1.5 1.6 Ur Collection Type Clean Catch Urine Color Yellow Urine Clarity Clear Urine pH 5.5 Ur Specific [place] 1.031 Urine Protein Trace Urine Glucose (UA) Negative Urine Ketones Trace Urine Blood 1+ A Urine Nitrite Negative Urine Bilirubin Negative Urine Urobilinogen (Auto) 3.0 Ur Leukocyte Esterase Negative Urine RBC 2 Urine WBC < 1 Ur Squamous Epith Cells 1 Amorphous Crystals Present A Urine Bacteria Rare Quality Measures Quality Measures VTE prophylaxis Assessment & Plan Assessment Current Active Medications: Generic Name Dose Route Start Last Admin Trade Name Freq PRN Reason Stop Dose Admin Acetaminophen 650 mg 05/17/25 23:12 Acetaminophen 325 Mg Tablet PO 06/16/25 23:11 Q6H PRN Fever >100.4 Acetaminophen 650 mg 05/17/25 23:12 Acetaminophen Supp 650 Mg Supp OR 06/16/25 23:11 Q6H PRN PAIN SCALE 1-3 (mild Hydrocodone Bitart/Acetaminophen 1 tab 05/17/25 23:12 Hydrocodone/Apap 5/325 Tablet PO 05/22/25 23:11 Q4HR PRN PAIN SCALE 4-6 (Moderate Lactated Ringer's 1,000 mls @ 75 mls/hr 05/17/25 23:15 05/18/25 00:20 Lactated Ringers IV 06/16/25 23:14 75 mls/hr .[id number] KIRSTEN Administration Piperacillin/Tazobactam/Dextrose 3.375 g in 50 mls @ 100 mls/hr 05/17/25 23:25 05/18/25 05:18 Zosyn IV 05/24/25 23:24 100 mls/hr Q6HR KIRSTEN Administration Morphine Sulfate 2 mg 05/18/25 07:50 Morphine Sulf Inj 4 Mg/Ml Vial IVP 05/22/25 23:11 Q4HR PRN PAIN SCALE 7-10 (Severe Ondansetron HCl 4 mg 05/17/25 23:12 Ondansetron Inj 2 Mg/Ml Inj 2 Ml IVP 06/16/25 23:11 Q6H PRN NAUSEA OR VOMITING Protocol Plan Mr. Goldberg is a 24-year-old male with no significant past medical history who presented to the ED with RUQ/epigastric pain and admitted for further management of acute calculous cholecystitis. #Acute calculous cholecystitis #Intractable nausea and vomiting-improving #Reactive leukocytosis Young male with RUQ/epigastric pain, leukocytosis, and US confirming acute calculous cholecystitis without CBD obstruction after returning from previous ER visit on 05/12/2025. Patient first noted right upper quadrant pain 3 days ago which required him to come to the ER. MRCP at that time showed acute calculous cholecystitis and hepatomegaly but no choledocholithiasis. Patient was sent home after pain resolved with IV/p.o. pain meds. WBC trend is also increasing from 17K-19K however no fevers noted -N.p.o. since midnight -IV Zosyn every 6 hours -Maintenance fluids -Pain control with IV morphine as needed General Surgery, Dr. Anthony consulted plan for cholecystectomy later today -IV Zofran for nausea -Continue to monitor for any signs of new infection 17:00 - UDPATE- Spoke with Dr. nAthony, General surgery, and felt patient can be discharged home today from surgery standpoint, however, d/t patient requiring IV pain medications early this morning, will discharge ealry tomorrow morning with Percocet as needed. Patient can f/u with general surgery on 05/26/25. Will transition patient's IV pain to PO pain medication and see how patient tolerates. Will also discontinue IV Abx as inflamed source is removed in OR. #Hepatomegaly with fatty infiltration Noted on MRCP and US, incidental, no acute LFT abnormalities. - Follow-up outpatient for lifestyle modification with PCP #Elevated blood pressure BP 161/88 persistently elevated during ED stay Patient with no known HTN history, young age raises concern for possible secondary cause such as renal artery stenosis. -Patient may require outpatient follow-up for hypertension -Will encourage patient to make lifestyle modifications to reduce his blood pressure status post surgery Health Maintenance: DVT prophylaxis: SCDs Diet: N.p.o., will resume diet after surgery Rodriguez: No Lines: PIV Supplemental O2: None CODE STATUS: Full code Disposition: Admitted to [facility] for further management of his acute calculous cholecystitis. Anticipate discharge within 24 hours. Patient's plan and care discussed with my attending, Dr. Justus Dooley MD PGY-3 Attending Provider Attestation/Addendum I have examined the patient, reviewed labs and imaging findings, discussed the case with the resident(s), and reviewed entered orders. I agree with the plan of care as outlined in this note, with these additional summaries/recommendations: Patient seen at bedside. He reports his pain is currently controlled with Manning and IV morphine for breakthrough pain. Continue n.p.o. status and IV fluids. Patient diagnosed with acute calculous cholecystitis. Patient was seen by general surgery and will go for laparoscopic cholecystectomy today. Continue IV Zosyn for now. Tylenol as needed for fever. Zofran as needed for nausea. Patient updated on the plan and in agreement. All questions answered to satisfaction. Please see residents note for additional details and management. Dr. Justus MD
--- NOTE | 2025-05-18 09:55 | ESCONSULT_ITS ---
HPI Consult details History of present illness: 24M presenting with abdominal pain and nausea. Patient reports pain began yesterday afternoon, it was not related to eating but felt similar to pain he had a few days prior when he presented to the ER and was found to have gallstones. Patient states that pain has persisted this time, is currently 8 out of 10, and workup this time was consistent with acute cholecystitis. Of note his T. bili is normal, his CBD is slightly enlarged on the ultrasound but he had an MRCP a few days ago for the same reason that was negative for choledocholithiasis PMH: None PSH: Eye surgery Meds: None Allergies: NKDA Social history: Non-smoker Review of Systems Review of Systems ROS Unobtainable: All systems reviewed & no additional complaints except as documented Neurologic Neurologic: Reports system reviewed and no additional complaints, except as documented and Reports as per [facility] Meds Home Medications and Allergies Home Medications ?Medication ?Instructions ?Recorded ?Confirmed ?Type No Known Home Medications 05/18/2504/04 History Allergies Allergy/AdvReac Type Severity Reaction Status Date / Time No Known Allergies Allergy Verified 05/17/25 19:43 Exam Vital Signs Temp Pulse Resp BP Pulse Ox O2 Del Method 97.4 F 87 16 139/86 H 98 Room Air 05/18/25 08:02 05/18/25 08:02 05/18/25 08:02 05/18/25 08:02 05/18/25 08:02 05/18/25 08:02 Constitutional Constitutional: no acute distress Routine Respiratory Exam Respiratory: Present no resp distress Routine Abdominal Exam Abdominal: Present soft and tenderness (Moderate right upper quadrant tenderness, positive Sapp sign); Absent distended, rebound or guarding Results Results: Laboratory Laboratory results: results reviewed Results: Imaging Imaging narrative: MRCP reviewed US - abdomen: report reviewed Assessment & Plan Plan 24M presenting with signs and symptoms of acute cholecystitis. I explained benefits/risks of surgery including need for conversion to open, bleeding, infection, injury to nearby structures requiring further procedures which could require transfer to a tertiary hospital, as well as postoperative hernia and diarrhea. Patient expressed understanding and is agreeable to proceeding OR today for laparoscopic cholecystectomy, possible open
--- NOTE | 2025-05-18 11:30 | PC.SS ---
Addendum entered by RAMIRO Cowart 05/18/25 15:17: Rounding note: surgery, d/c tomorrow Original Note: Patient is a 24 year old male presenting to the hospital for acute cholecystitis. CHOCOLATE DIPPER met with patient, at bedside was sister and mother, CHOCOLATE DIPPER introduced self-role and reason for visit. Patient gave permission for family to be present in the room. Patient confirmed that he lives at home with his mom at address on face sheet. Patient does not use medical equipment, does not have diabetes, pharmacy of choice is [facility]. Patient stated that his PCP was Dr. Luciana Roth at [facility] but clinic has since been closed, patient will see by same doctor but at [facility]. Patient is employed farmer diversified crops, once medically clear he would like to return home and family will provide transportation. PCP: Dr. Luciana Roth Decision maker: Criss Goldberg PH: [phone] D/C: Home
--- NOTE | 2025-05-18 17:01 | ESOP_ITS ---
Date of Procedure 05/18/25 Pre Op Diagnosis Acute cholecystitis Post Op Diagnosis Same Procedure Laparoscopic cholecystectomy Findings Severely inflamed gallbladder with many stones Procedure Description After discussion of risks and benefits, patient was brought to the operating room, SCDs were placed and general anesthesia was induced. He had already received preoperative antibiotics and was prepped and draped in usual sterile fashion. After timeout a supraumbilical incision was made with #11 blade and the skin was elevated with towel clamps. A Veress needle was placed through the incision and proper positioning was confirmed with a drop test. The abdomen was insufflated to 15 mmHg at which point the Veress needle was exchanged for a 5 mm camera using a Visiport technique. There were no signs of injury from the point of entry. 3 additional ports were placed under direct vision, one 12 mm at the epigastrium, one 5 mm right subcostal and one 5 mm right anterior axillary line. Patient was placed in reverse Trendelenburg. The gallbladder was noted to be very tense and edematous and was first aspirated with return of approximately 60 cc of dark bile. At this point the fundus was able to be grasped and retracted cephalad and the infundibulum was grasped and retracted laterally. The gallbladder was very friable so there was an unavoidable cholecystotomy and there were many, many small stones visible through this cholecystostomy so I painstakingly removed them with stone graspers in order to avoid gross spillage. There were also dense peritoneal adhesions around the gallbladder neck as well as copious fat. The cystic artery was overlying some of this fat so it was first clipped and transected in the usual fashion. The fat and peritoneum were then very carefully and bluntly dissected until ultimately the cystic duct was clearly visible emanating from the neck of the gallbladder I opted to clip the cystic duct as high as possible so the clips were more so on the neck of the gallbladder. The clips were placed in the usual fashion and the cystic duct/gallbladder neck was transected with scissors. The gallbladder was removed from the gallbladder bed using electrocautery. Hemostasis of the gallbladder bed was achieved with electrocautery and reinforced with Surgicel powder. The specimen was removed in an Endo Catch bag via the epigastric port and the epigastric fascia was closed with a 0 Vicryl suture using a Gigi-Marie. The incisions were irrigated and infiltrated with half percent Marcaine for a total of 30 cc. Incisions were closed with 4 Monocryl and reinforced with Dermabond. Patient was extubated and brought to PACU in stable condition Pathology / specimen Other (Gallbladder with stones) Estimated Blood Loss 50 Surgeon Annalee Anthony MD Surgical Staff Operation Date: 05/18/25 12:45 Case Staff PATTERNMAKER SAMPLE: Juany Boyer RN First Assistant: Cathy Boone
--- NOTE | 2025-05-18 17:07 | ESDS_ITS ---
Planned Discharge Date 05/18/25 DS: Providers Provider Date of admission: 05/17/25 23:12 Primary care physician: Physician No Primary/Family Admitting Provider: Shaq Zavaleta MD Attending Provider on Admission: Shaq Zavaleta MD Consults: 05/17/25 23:19 Consult to General Surgery Stat Comment: Consulting Provider: Annalee Anthony Attending Provider on DC: Annalee Anthony MD Discharging Provider: Annalee Anthony MD Diagnosis Discharge Diagnosis (1) Acute calculous cholecystitis: Status: Acute Problem List Completed Was Problem List Reviewed/Reconciled?: Yes Hospital Course Brief History: 24M presenting with abdominal pain and nausea. Patient reports pain began yesterday afternoon, it was not related to eating but felt similar to pain he had a few days prior when he presented to the ER and was found to have gallstones. Patient states that pain has persisted this time, is currently 8 out of 10, and workup this time was consistent with acute cholecystitis. Of note his T. bili is normal, his CBD is slightly enlarged on the ultrasound but he had an MRCP a few days ago for the same reason that was negative for choledocholithiasis PMH: None PSH: Eye surgery Meds: None Allergies: NKDA Social history: Non-smoker Exam Vital Signs Temp Pulse Resp BP Pulse Ox O2 Del Method 98.2 F 81 18 142/78 H 98 Room Air 05/18/25 12:02 05/18/25 15:35 05/18/25 15:35 05/18/25 12:02 05/18/25 12:02 05/18/25 12:02 Discharge Plan Plan Patient Disposition: HOME (Self Care) Patient condition on transfer: Stable Prescriptions/Referrals Prescriptions/Med Rec: New oxycodone-acetaminophen [Percocet] 5-325 mg tablet 1 tab PO Q4HR MDD 6 tabs PRN (Reason: pain) Qty: 10 0RF Rx Instructions: Take 1 tablet every 4-6 hours as needed for moderate to severe pain Referrals: No Primary/Family,Physician [Primary Care Provider] Annalee Anthony MD [Physician, General Surgery] Referral Note: You will receive a phone call to confirm a follow-up appointment with me on Saturday 05/26 Patient/Caregiver Discharge Instructions Other Discharge Activity Instructions:: Avoid lifting objects greater than 10 pounds for 6 weeks You may resume showering in 2 days, on 05/20 It is okay to get incisions wet at that time, pat dry after Avoid bathing or swimming for 2 weeks During the surgery we fill your abdomen with air in order to see the structures. Some of this air tends to linger and cause pain that is referred to the shoulder as well as pain with deep breaths. This will get better with time. Being out of bed and walking will help the air to absorb faster You may take ibuprofen as needed in between doses of Percocet or instead of Percocet for mild to moderate pain If you develop worsening pain, nausea/vomiting, fever or signs of jaundice please seek care in ER Education Materials: Preventing Surgical Site Infections Print Language: Belarusian Stand Alone Forms: Joanie Award Info., Patient Portal Info Letter PROCEDURES: Procedure Date 05/18/25 Procedures Laparoscopic cholecystectomy
--- NOTE | 2025-05-18 17:25 | SUR.PHASEI ---
1720 Patient arrived to recovery resting comfortably in [facility], on oxygen 15L via oxy mask with an oral airway in place, breathing unlabored, vital signs stable, dressing intact to abdomen; dermabond x4 port, no bleeding noted, report received from Juany ORTA and Isis MANLEY
--- NOTE | 2025-05-18 18:23 | SUR.PHASEI ---
1810 Report given to Brando RN, patient meets discharge criteria from recovery, awake and talking with staff, on oxygen 4L via nasal cannula, breathing unlabored, vital signs stable, denies pain, dressing intact; no bleeding noted, drinking water; denies nausea, encouraged to use incentive spirometer 182 Patient transported via gurney to room 351 without incident, patient able to ambulate from the gurney to bed with stand by assist from this lead technical writer, patient family awaiting in room, patient resting comfortable with call light in reach when this lead technical writer left patients room
[2025-05-18 22:04] LABS: Lipase 31 U/L (12-53)
[2025-05-19] VITALS (9 sets, daily range): BP systolic 116–129; BP diastolic 69–76; PULSE 76–85; RESP 15–97; TEMP 36.3–37.8; O2SAT 92–95
--- NOTE | 2025-05-19 08:18 | PC.NURSE ---
Patient ambulating hallway with mother at side.
--- NOTE | 2025-05-19 11:33 | PC.NURSE ---
Patient oral temp 100.1, called and notified Dr. Angelica MD states okay to give Tylenol.
[2025-05-19] MEDS: ACETAMINOPHEN 325 MG TABLET 650 MG PO (11:36)
--- NOTE | 2025-05-19 13:35 | PC.NURSE ---
Called Dr. oDminguez to update on patient's oral temp. @5023 99.2, @[address] Dominguez okay to discharge home.
--- NOTE | 2025-05-19 18:01 | ESDS_ITS ---
Planned Discharge Date 05/19/25 DS: Providers Provider Date of admission: 05/17/25 23:12 Primary care physician: Physician No Primary/Family Admitting Provider: Shaq Zavaleta MD Attending Provider on Admission: Cristhian Jerome MD Consults: 05/17/25 23:19 Consult to General Surgery Stat Comment: Consulting Provider: Annalee Anthony Attending Provider on DC: Cristhian Jerome MD Discharging Provider: Cristhian Jerome MD DS: Diagnosis Problem List Completed Was Problem List Reviewed/Reconciled?: Yes Hospital Course Hospital Course Hospital course: Reason for hospitalization: actue cholecystitis Cristhian Goldberg is 24-year-old male no significant past medical history presenting to ED on05/18/2025 chief complaint of right upper quadrant epigastric abdominal pain, nausea, vomiting. MRCP completed in ED showed cholelithiasis and gallbladder wall thickening. No choledocholithiasis. He was initially discharged on pain medication but returned shortly after due to worsening pain. Labs significant for leukocytosis (WBC 17K) with normal LFTs and chemistries. RUQ ultrasound showed multiple gallstones with gallbladder wall thickening/edema, consistent with acute calculous cholecystitis. ED consulted Dr. Anthony (surgery) who recommended admission for cholecystectomy. Laparoscopic cholecystectomy completed on 03/19 with no complications. Postop healing well with adequate control of pain. Patient was able to tolerate diet. Now in stable condition and ready for discharge. Patient counseled on follow-up and post op instructions. Recommend to complete antibiotics for 2 more days and use pain medication as needed. Discharge Recommendations: Avoid lifting objects greater than 10 pounds for 6 weeks You may resume showering in 2 days, on 05/20 It is okay to get incisions wet at that time, pat dry after Avoid bathing or swimming for 2 weeks During the surgery we fill your abdomen with air in order to see the structures. Some of this air tends to linger and cause pain that is referred to the shoulder as well as pain with deep breaths. This will get better with time. Being out of bed and walking will help the air to absorb faster You may take ibuprofen as needed in between doses of Percocet or instead of Percocet for mild to moderate pain If you develop worsening pain, nausea/vomiting, fever or signs of jaundice please seek care in ER Continue taking antibiotics as prescribed. Hospital Diagnoses: #Acute calculous cholecystitis #Intractable nausea and vomiting-improving #Reactive leukocytosis #Hepatomegaly with fatty infiltration #Elevated blood pressure The patient's management plan was discussed with my attending physician Dr. Do brand. Alem Dominguez MD, PGY-2 Time Spent with Patient Time attestation: Total time spent providing and/or coordinating discharge services: Time spent: Greater than 30 minutes Exam Vital Signs Temp Pulse Resp BP Pulse Ox O2 Del Method O2 Flow Rate 98.2 F 85 18 129/76 95 Room Air 4 05/19/25 13:30 05/19/25 08:00 05/19/25 08:00 05/19/25 08:00 05/19/25 08:00 05/19/25 08:00 05/18/25 18:10 Narrative Exam General Appearance: Pt in NAD laying on his right side in bed. Conversational, able to answer all questions. HEENT: NC/AT, no scleral icterus, no conjunctival pallor, MMM Lungs: CTAB, no wheezes or crackles appreciated CVS: RRR, S1/S2 heard, no murmurs or rubs appreciated ABD: Soft, right upper quadrant tenderness to light touch, non-tender, non- distended, BS + in all 4 quadrants EXT: no deformity/edema/lesions/cyanosis/clubbing, radial pulses 2+ BL, DP pulses 2 + BL SKIN: Skin exam normal without any rashes. No jaundice. Neuro: A&O x 3. No gross neurological deficits. Motor and sensory grossly intact in B/L UL and LL. Psych: Appropriate mood and affect Discharge Plan Plan Patient Disposition: HOME (Self Care) Patient condition on transfer: Stable Prescriptions/Referrals Prescriptions/Med Rec: New oxycodone-acetaminophen [Percocet] 5-325 mg tablet 1 tab PO Q4HR MDD 6 tabs PRN (Reason: pain) Qty: 10 0RF Rx Instructions: Take 1 tablet every 4-6 hours as needed for moderate to severe pain amoxicillin-pot clavulanate 875-125 mg tablet 1 tab PO BID 2 Days Qty: 4 0RF Referrals: Annalee Anthony MD [Physician, General Surgery] Referral Note: You will receive a phone call to confirm a follow-up appointment with me on Saturday 05/26 No Primary/Family,Physician [Primary Care Provider] Patient/Caregiver Discharge Instructions Other Discharge Activity Instructions:: Avoid lifting objects greater than 10 pounds for 6 weeks You may resume showering in 2 days, on 05/20 It is okay to get incisions wet at that time, pat dry after Avoid bathing or swimming for 2 weeks During the surgery we fill your abdomen with air in order to see the structures. Some of this air tends to linger and cause pain that is referred to the shoulder as well as pain with deep breaths. This will get better with time. Being out of bed and walking will help the air to absorb faster You may take ibuprofen as needed in between doses of Percocet or instead of Percocet for mild to moderate pain If you develop worsening pain, nausea/vomiting, fever or signs of jaundice please seek care in ER Continue taking antibiotics as prescribed. Education Materials: Cholecystectomy, Preventing Surgical Site Infections Print Language: Divehi Stand Alone Forms: Joanie Award Info., Patient Portal Info Letter Discharge Order Discharge Orders: Discharge (Routine); Ordered 05/19/25 Ordered By: Alem Dominguez Quality Discharge Quality Measures VTE prophylaxis Attestestation MD Attestation I have examined the patient, reviewed labs and imaging findings, discussed the case with the resident(s), and reviewed entered orders. I agree with the plan of care as outlined in this note. Time Spent: [address] Justus MD
== END 2025-05-19 14:04 | disposition home or self-care (01) ==
LOC: SERX 22:35 → S3NX 05-18 01:38 → SERHOLD 05-19 06:56 → S3NX 05-19 06:57
PROVIDERS: Nurse Practitioner Family; Surgery; Admitting Provider Student in an Organized Health Care Education/Training Program; Emergency Provider Emergency Medicine; Visit Provider Student in an Organized Health Care Education/Training Program
PROC: 0FT44ZZ Resection of Gallbladder, Percutaneous Endoscopic Approach (ICD-10-PCS; CPT 47562; principal; 2025-05-18 12:30)
DX: K80.12 Calculus of gallbladder with acute and chronic cholecystitis without obstruction (principal); K76.0 Fatty (change of) liver, not elsewhere classified; R03.0 Elevated blood-pressure reading, without diagnosis of hypertension
CPT/HCPCS: 47562; 36415; 76705; 80053; 81001; 83690; 83735; 84100; 85025; 85610; 85730; 96361; 96365; 96372; 96375; 96376; 99284; A4217; A4649; G0378; J0131; J0694; J1100; J1171; J1885; J2250; J2270; J2405; J2543; J2704; J3010; J3490; J7120; Q0162; A9270; J1805

== ENCOUNTER 2025-05-26 09:55 | Outpatient (AMB) | payer MEDICAID, SELFPAY ==
--- NOTE | 2025-05-26 10:04 | GSCOFFNT_ITS ---
Vital Signs - [facility] 05/26/25 10:08 Height 1.7 m Height Method Measured Weight 91.739 kg Weight Measurement Method Standing Scale BMI 31.6 BP 132/82 H Blood Pressure Source Automatic Cuff Blood Pressure Location Left Upper Arm Position Sitting Respiration 16 Pulse 72 Pulse Source Monitor Temp 96.8 F Temp Source Temporal Artery Scan Pulse Oximetry (%) 96 Oxygen Delivery Method Room Air Med/Allergies Allergies & Medications Allergies No Known Allergies Allergy (Verified 05/26/25 10:08) Medication Reconciliation oxycodone-acetaminophen 5 mg-325 mg tablet (Percocet) 1 tab PO Q4HR PRN pain #10 tabs 05/18/25 [Rx Confirmed 05/26/25] MA Intake Visit Data Collection New Patient or Established: Established Patient (seen at [facility] within 3 years) Seen by Clinical Staff ONLY (RN/MA): No Pain Present Currently: No Pain Scale Used: Alarcon-Stevens/Numerical Instrument Setter Required: No PCP or OBGYN visit in last 3 months: Yes Hx Now: No Do You Feel Safe at Home: Yes Authorities Contacted: N/A Smoking Status Smoking Status: Never smoker Immunization / Flu Flu Vaccine in the Last 12 Months: No Flu Vaccine Exclusion Criteria: Refused by Patient Past Medical History Past Medical History NEUROLOGIC: Negative Seizures CARDIAC: Negative Hypercholesterolemia, Congestive Heart Failure or Hypertension RESPIRATORY: Negative Chronic Obstructive Pulmonary Disease (COPD) GENITOURINARY: Negative Renal Disease ENDOCRINE: Negative Diabetes Mellitus Type 1 or Diabetes Mellitus Type 2 OTHER HISTORY: Positive Hospitalization; Negative Blood Transfusions, Blood Transfusion Reaction or Anesthesia Reactions Surgical History SURGICAL: Positive Ear Surgery and Eye Surgery Social History SMOKING STATUS: Smoking status: Never smoker ALCOHOL FREQUENCY: Alcohol Intake Frequency: holidays/special occasions only HOUSING: Housing: House LIVES WITH: Lives With: Family HPI HPI Narrative 24M who presented with acute cholecystitis s/p lap floyd 05/19 here for planned follow up. Pt reports he had subjective fever and pain at first after surgery but he is feeling much better now, not currently using any medications. His appetite has not fully returned and he did have diarrhea but that has also improved ROS Review of Systems Systems Reviewed: All systems reviewed, normal except as documented Objective/Exam General General Appearance: alert, cooperative and well groomed Resp Respiratory exam: Absent respiratory distress Abdominal Abdominal exam: Present soft and incision (c/d/i, no erythema, no fluctuance or tenderness); Absent distention or tenderness Results Pathology of gallbladder reviewed Assessment & Plan Diagnosis / Problem List (1) Acute calculous cholecystitis: Status: Acute Assessment & Plan: 24M who presented with acute cholecystitis s/p lap floyd 05/19 here for planned follow up, recovering well overall Plan: Follow up as needed Office Procedures GNS Level of Care Nursing/Assessment Patient Status: Established Patient Nursing Assessment/Reassesment: Medication Reconciliation, Orthostatic Vitals, Update PMH in EMR and Vital Signs Coordination of Care: Complex Care and Chronic Disease 1-5, Consent,records obtained, informed consent, Education Simp Pt/Fam, Results/Orders obtained and Staff clarify orders Established Patient Charge Established Patient Point Assignment: 100 Established Patient Point Charge: EP Level 3 (80-115) Patient Portal Questionaires Social History Living Situation History Housing: House Tobacco History Smoking Status: Never smoker Alcohol History Alcohol Intake Frequency: holidays/special occasions only Domestic Abuse History Do You Feel Safe at Home: Yes Review of Systems Report any current symptoms Only answer those that you have currently: Past Medical History Past Medical History Have you ever been diagnosed with any of the following: Neurological Problems Seizures: No Cardiology Problems Hypercholesterolemia: No Congestive Heart Failure: No Hypertension: No Respiratory Problems Chronic Obstructive Pulmonary Disease (COPD): No Genital/Urinary Problems Renal Disease: No Endocrine Problems Diabetes Mellitus Type 1: No Diabetes Mellitus Type 2: No Other Problems Hospitalization: Yes Blood Transfusions: No Blood Transfusion Reaction: No Anesthesia Reactions: No
[2025-05-26 10:08] VITALS: BP 132/82; PULSE 72; RESP 16; TEMP 36; O2SAT 96; BMI 31.6
== END 2025-05-26 10:34 | disposition home or self-care (01) ==
LOC: HODSRG 09:55
PROVIDERS: Supervising Provider Surgery; Visit Provider Surgery
DX: Z48.815 Encounter for surgical aftercare following surgery on the digestive system (principal)
CPT/HCPCS: 99213; G0463